=== PATIENT | female | born 1990 | race Caucasian/White ===

== ENCOUNTER 2016-11-26 06:00 | Inpatient (IN) | payer BC, MEDICAID ==
[~2016-11-26] VITALS: Ht 170.2 cm; Wt 87.2 kg
[~2016-11-26 06:00] MED LIST: ATEN25TA PO; PREN1TAB77 PO
[2016-11-26] MEDS ORDERED: LIDOCAINE 1% (10mg/ml) 2ml SDV ID PRN (06:30)
[2016-11-26] MEDS ORDERED: OXYTOCIN 30 UNIT in D5LR 500 ML SCH (06:30)
[2016-11-26] MEDS ORDERED: CALCIUM CARBONATE 500mg Chewable TAB PO PRN (06:30)
[2016-11-26] MEDS ORDERED: ACETAMINOPHEN 500 MG TABLET PO PRN (06:30)
[2016-11-26] MEDS ORDERED: MAG-AL + SIM LIQUID 30 ML UDC PO PRN (06:30)
[2016-11-26 06:41] LABS: HCT - HEMATOCRIT 41.1 % (36-46); HGB - HEMOGLOBIN 13.4 GM/DL (12-16); MEAN CORPUSCULAR HGB 30.6 UUG (26-34); MEAN CORPUSCULAR HGB CONC(MCHC 32.6 GM/DL (31-37); MEAN CORPUSCULAR VOLUME 93.8 UM3 (80-100); MEAN PLATELET VOLUME 9.7 UM3 (9.4-12.4); RED BLOOD COUNT 4.38 M/MM3 (4.00-5.20); WBC - WHITE BLOOD COUNT 9.1 T/MM3 (4.5-11.0)
[2016-11-26] MEDS: LR 1,000 ML IV PRN ×2 (06:41→11:14)
[2016-11-26 06:44] VITALS: BP 121/62; PULSE 77; RESP 16; TEMP 98.3
[2016-11-26] MEDS ORDERED: D5LR 1,000 ML IV PRN (06:45)
[2016-11-26] MEDS ORDERED: AMPICILLIN 2 G in NORMAL SALINE 100 ML IV ONE (06:45)
--- NOTE | 2016-11-26 07:11 | ANESOB ---
Epidural/ Date/Time DATE: 11/26/16 TIME: 07:09 Preop Diagnosis 39 1/7 weeks Procedure: Labor Epidural Plan: Epidural Height: 5 ' 7.00 " Weight: 87.200 kg BMI: kg/m2 NPO since: mn P:1 Heart Rate: 130 Medications & Allergies Inpatient Medications Current Medications Medications (Trade) Dose Ordered Sig/Marta Start Time Stop Time Status Last Admin Dose Admin Lidocaine HCl 0.2 mg 0.2 mg PRN PRN 11/26/16 06:30 Lactated Ringer's (Lactated Ringers) 1,000 ml @ 0 mls/hr Q0M PRN 11/26/16 06:19 11/26/16 06:41 999 MLS/HR Acetaminophen (Tylenol Extra Strength) 1-2 TABS = 500-1,000 MG Q4H PRN 11/26/16 06:30 Al Hydroxide/Mg Hydroxide (Maalox) 30 ml Q4H PRN 11/26/16 06:30 Calcium Carbonate 1-2 TABS Q2H PRN 11/26/16 06:30 Dextrose/Lactated Ringer's 1,000 ml @ 0 mls/hr Q0M PRN 11/26/16 06:45 11/26/16 06:42 125 MLS/HR Oxytocin 30 unit/ Dextrose/Lactated Ringer's 503 ml @ 0 mls/hr Q0M 11/26/16 06:30 11/26/16 06:43 2 MLS/HR Ampicillin Sodium/ Sodium Chloride (Ampicillin/NS) 100 ml @ 200 mls/hr Q4H 11/26/16 10:45 Atenolol (Atenolol) 25 Mg Tablet, 1 TAB PO DAILY, (Reported) Last Taken: on 11/26/16 0645 Vits W-Ca,Fe,FA(<1Mg) ( Vitamins) 1 Each Tablet, 1 TAB PO DAILY, (Reported) Last Taken: on 11/25/16 2100 Coded Allergies: No Known Allergies (Unverified , 11/26/16) Medical/Surgical History Anesthesia PMH: Reports: Other (history of tachycardia), Reflux, Denies: * Diabetes, Anesthesia Reactions, Malignant Hyperthermia Smoking Status: Never smoker Does patient use chewing tobac: No Second Hand Exposure: No Substance Use Type: does not use Alcohol Intake: none Anesthesia Adverse Reactions: FOUND none Family Hx of Anesthesia Advers: none Hx of Motion Sickness: No Complications During : No Pertinent Findings Laboratory Tests 11/26/16 06:33 Physical Exam Respiratory: Lungs clear Cardiovascular: Regular rate, rhythm Airway Assessment Mallampati Score: II TMD: 3 Fingerbreadths Neck Extension: Good Overall Assessment: No Airway Concerns ASA: 2 Discussion Discussed risks/options/alternatives of anesthesia. Patient consents. Nursing pain assessment noted. Present for Discussion: Present: Family Member Attestation Statement Prior to the delivery of any anesthetic medication, I examined the patient, developed the plan, obtained the patient's consent and discussed the risk and benefits of the procedure with the patient/guardian. If the note happens to be signed after anesthesia start time, it is only due to providing efficient care of the patient and documenting at a time when the computer is available. HA MADRID CRNA Nov 26, 2016 07:10
[2016-11-26] MEDS: AMPICILLIN 1 G in NORMAL SALINE 100 ML IV SCH ×2 (10:43→14:51)
[2016-11-26] MEDS ORDERED: ONDANSETRON 4mg/2ml INJECTION IV PRN (11:30)
[2016-11-26] MEDS ORDERED: ROPIVACAINE 1% 200 MG, SUFENTANIL 50 MCG in NORMAL SALINE 80 ML EPI PRN (11:30)
[2016-11-26] MEDS ORDERED: NALOXONE 0.4mg/ml INJECTION IV PRN (11:30)
[2016-11-26] MEDS ORDERED: DiphenhydrAMINE 50 MG/ML INJECTION IV PRN (11:30)
[2016-11-26] MEDS ORDERED: OXYTOCIN 30 UNIT in D5W 500 ML IV ONE (17:14)
[2016-11-26] MEDS ORDERED: MILK OF MAGNESIA 30 ML SUSP PO PRN (17:15)
[2016-11-26] MEDS ORDERED: TETANUS,DIPHTH,a PERTUS (Tdap) 0.5 ML VIAL IM ONE (17:15)
[2016-11-26] MEDS ORDERED: HYDROCORTISONE 2.5% CREAM 30 GM RECTALLY PRN (17:15)
[2016-11-26] MEDS ORDERED: PHENYLEPHRINE RECTAL SUPPOSITORY RECTALLY PRN (17:15)
[2016-11-26] MEDS ORDERED: HYDROCODONE/APAP 5 mg/325 mg TABLET PO PRN (17:15)
[2016-11-26] MEDS ORDERED: DiphenhydrAMINE 25 MG CAPSULE PO PRN (17:15)
[2016-11-26] MEDS: IBUPROFEN 800 MG TABLET PO PRN (17:18)
--- NOTE | 2016-11-26 18:04 | LDNF ---
DATE OF DELIVERY 11/26/2016 ANA Richardson is a 26-year-old 2, para 1 at 39 weeks 1 day gestational age who was brought in for a Pitocin induction for logistical reasons. She was GBS-positive and started on ampicillin. Her membranes were ruptured artificially, returning clear fluids. She received an epidural. An IUPC was placed when things were initially moving slowly. However, after the IUPC was placed her cervix changed quickly to complete. She pushed for a very short period of time and had a spontaneous vaginal delivery of a viable female infant, Apgars 8/9, weight 3465 grams, name "Colleen." Baby was vigorous at delivery so she was placed on mom's abdomen. The cord clamping was delayed for more than two minutes. The placenta delivered spontaneously. She had a small second-degree laceration that was repaired in the normal fashion. Mom and baby tolerated the delivery well. [facility]
[2016-11-26 18:16] VITALS: BP 102/53; PULSE 76; RESP 18
[2016-11-26 19:12] VITALS: BP 115/57; PULSE 81; RESP 18; TEMP 99.2
--- NOTE | 2016-11-26 19:26 | NUR ---
Epidural Epidural catheter removed without complications, tip intact, no S/S of infection noted. Area cleansed with alcohol, betadine and covered with a bandaid. Pt. educated about S/S of infection and to call doctor with concerns.
--- NOTE | 2016-11-26 21:45 | ANESPO ---
Post-Op Note Date 11/26/16 Time: 21:42 Status Pt Participated in Evaluation: Pt participated in person Vital Signs Date Time Temp Pulse Resp B/P Pulse Ox O2 Delivery O2 Flow Rate FiO2 11/26/16 19:12 99.2 81 18 115/57 Room Air Respiratory Function: Airway patent, Regular respirations Cardiovascular Function: Regular pulse Mental Status: Alert/oriented Pain Level Intensity: 0 Hydration: Taking po fluids Complications during Recovery None apparent Post-Anesthesia Notes ambulatory without problems Follow-Up Instructions Instructions Per Surgeon HA MADRID CRNA Nov 26, 2016 21:45
[2016-11-26 23:20] VITALS: BP 117/58; PULSE 70; RESP 17; TEMP 98.5
--- NOTE | 2016-11-26 23:29 | NUR ---
Chart Check 24 hour chart check completed
--- NOTE | 2016-11-27 02:37 | NUR ---
SHIFT SUMMARY: Pt delivered viable female via vaginal delivery resulting in a 2nd degree repair. VSS. Pt's perineum pain controlled with PO Motrin. Fundus firm at umbilicus, light to moderate lochia noted. IV saline locked in pt's left wrist. General diet tolerated. Epidural cath removed, pt tolerated well. Pt was nauseated and very tired at the end of recovery. Pt request to rest for a few hours before getting up to BRP. RN assist pt to BRP at 6hours after delivery. Pt ambulates w/o complications. Urinary stanley cath removed. RN discussed and provided pericare. Pt has been up to BRP with RN supervision, no complications. Pt voided and performed own pericare. RN notes light lochia. Pt ambulating w/o complications. Pt uncoordinated with , RN assist with all feedings. RN gives encouragement and praise. Arnaldo in room and supportive, family visited after delivery of baby. Baby currently in nursery to allow pt and to sleep.
[2016-11-27 04:45] VITALS: BP 110/55; PULSE 63; RESP 16; TEMP 98.3
[2016-11-27] MEDS: IBUPROFEN 800 MG TABLET PO PRN ×2 (05:18→15:33)
--- NOTE | 2016-11-27 09:18 | PNPDOC ---
Progress Note PPD1 Rubella: Immune GBS: Positive Blood Type:O pos Subjective 11/27/16 Lochia: Minimal Pain: Controlled Voiding: Voiding Nausea and Vomiting: No Nausea/Vomiting Objective Vital Signs Date Time Temp Pulse Resp B/P Pulse Ox O2 Delivery O2 Flow Rate FiO2 11/27/16 04:45 98.3 63 16 110/55 Room Air Urine Output: Good General: Alert and Oriented Abdomen: Fundus Firm, Non-tender Extremities: Non-tender Assessment SP, Plan Routine Care Expected date of discharge: Nov 28, 2016 PATRICK BERNARDO MD Nov 27, 2016 09:18
[2016-11-27] MEDS ORDERED: DOCU240C40 PO (09:19)
[2016-11-27] MEDS ORDERED: HYDR-4246 PO (09:19)
[2016-11-27] MEDS ORDERED: IBUP-1547 PO (09:19)
[2016-11-27 09:50] VITALS: BP 106/57; PULSE 75; RESP 18; TEMP 98.4; O2SAT 98
[2016-11-27] MEDS: ATENOLOL 25 MG TABLET PO SCH (09:52)
[2016-11-27] MEDS: DOCUSATE CALCIUM 240 MG CAPSULE PO SCH (09:52)
[2016-11-27 17:15] VITALS: BP 111/59; PULSE 78; RESP 16; TEMP 98.5; O2SAT 99
[2016-11-28 01:30] VITALS: BP 110/75; PULSE 62; RESP 18; TEMP 98
--- NOTE | 2016-11-28 02:41 | NUR ---
Shift Summary VSS, up ad loren, showers, performs all own cares as well as cares. PO ibuprofen for pain relief is adequate. Bonding well with infant. Planning discharge later today.
[2016-11-28] MEDS: IBUPROFEN 800 MG TABLET PO PRN (03:53)
[2016-11-28 07:00] VITALS: BP 110/54; PULSE 73; RESP 16; TEMP 98.2
[2016-11-28] MEDS: ATENOLOL 25 MG TABLET PO SCH (08:59)
[2016-11-28] MEDS: DOCUSATE CALCIUM 240 MG CAPSULE PO SCH (08:59)
--- NOTE | 2016-11-28 11:56 | NUR ---
SHIFT SUMMARY VSS. FIRM FUNDUS, SCANT LOCHIA. PATIENT AD SAMUEL AND PERFORMS ALL SELF CARES. MINIMAL PAIN , CONTROLLED WITH IBUPROFEN 800MG. PATIENT WELL X2 AND PROVIDES ALL CARES FOR BABY. APPOINTMENT FOR November.
== END 2016-11-28 11:55 | disposition home or self-care (01) | DRG 775 ==
LOC: MC 06:15
PROVIDERS: ADMIT Obstetrics & Gynecology; ATTEND Obstetrics & Gynecology
PROC: 10E0XZZ Delivery of Products of Conception, External Approach (ICD-10-PCS; principal; 2016-11-26)
PROC: 0KQM0ZZ Repair Perineum Muscle, Open Approach (ICD-10-PCS; 2016-11-26)
PROC: 3E033VJ Introduction of Other Hormone into Peripheral Vein, Percutaneous Approach (ICD-10-PCS; 2016-11-26)
PROC: 10907ZC Drainage of Amniotic Fluid, Therapeutic from Products of Conception, Via Natural or Artificial Opening (ICD-10-PCS; 2016-11-26)
DX: O26.893 Other specified pregnancy related conditions, third trimester (principal); R00.0 Tachycardia, unspecified; O99.824 Streptococcus B carrier state complicating childbirth; O70.1 Second degree perineal laceration during delivery; O76 Abnormality in fetal heart rate and rhythm complicating labor and delivery; O32.8XX0 Maternal care for other malpresentation of fetus, not applicable or unspecified; Z3A.39 39 weeks gestation of pregnancy; Z37.0 Single live birth
CPT/HCPCS: 85027